=== PATIENT | female | born 1985 | race Caucasian/White ===

== ENCOUNTER 2020-07-10 11:31 | Outpatient (CLI) | payer OTHER, SELFPAY ==
[2020-07-10 12:24] LABS: Basophils Absolute Auto 0.1 K/mm3 (0.0-0.1); Basophils Percent Auto 0.8 % (0.2-1.2); Eosinophils Absolute Auto 0.6 K/mm3 (0-0.3); Eosinophils Percent Auto 7.2 % (0-4.4); Hematocrit 42.2 % (37.0-47.0); Hemoglobin 14.1 g/dL (12.0-15.0); Immature Granulocyte Absolute 0.06 K/mm3 (0.00-0.031); Immature Granulocyte Percent A 0.7 % (0-0.5); Lymphocytes Absolute Auto 2.39 K/mm3 (0.9-3.2); Lymphocytes Percent Auto 26.8 % (18.3-44.2); Mean Corpuscular HGB Conc 33.4 g/dl (32-36); Mean Corpuscular Hemoglobin 30.1 pg (26-34); Mean Platelet Volume 8.1 fl (7.4-10.4); Monocytes Absolute Auto 0.5 K/mm3 (0.1-0.6); Monocytes Percent Auto 5.3 % (2.6-8.5); Neutrophils Absolute Auto 5.3 K/mm3 (1.3-6.7); Neutrophils Percent Auto 59.2 % (45.5-73.1); Platelet Count Result 310 k/mm3 (150-375); Red Blood Count 4.69 M/mm3 (4.2-5.4); Red Cell Distribution Width 13.2 % (11.5-14.5); White Blood Count 8.9 K/mm3 (4.5-10.0)
[2020-07-10 12:34] LABS: Hemoglobin A1C 4.9 % (<5.7)
[2020-07-10 12:41] LABS: Alanine Aminotransferase 135 U/L (4-35); Albumin Level 4.4 g/dL (3.5-5.1); Alkaline Phosphatase 64 U/L (38-126); Anion Gap 4 mmol/L (8-16); Aspartate Amino Transferase 93 U/L (14-36); Bilirubin,Total 0.9 mg/dL (0.2-1.3); Blood Urea Nitrogen 9 mg/dL (7-17); Calcium 9.1 mg/dL (8.4-10.2); Carbon Dioxide 28 mmol/L (22-30); Chloride 103 mmol/L (98-107); Estimated Glomerular Filt Rate > 60; Glucose 89 mg/dL (65-105); Potassium 4.2 mmol/L (3.4-5.0); Sodium 135 mmol/L (137-145)
[2020-07-10 14:04] LABS: Vitamin D 25 Hydroxy 17.1 ng/mL
[2020-07-14 04:47] LABS: Red Blood Cell Folate 536 ng/mL RBC (>280)
[2020-07-14 05:55] LABS: Triiodothyronine T3 Free 3.4 pg/mL (2.3-4.2)
[2020-07-15 05:37] LABS: Thyroglobulin 20.5 ng/mL (2.8-40.9); Thyroglobulin Antibodies <1 IU/mL (<=1); Thyroid Peroxidase Antibodies <1 IU/mL (<9)
== END 2020-07-10 11:32 | disposition home or self-care (01) ==
PROVIDERS: PCP Family Medicine; Visit Provider Nurse Practitioner Obstetrics & Gynecology
DX: R53.81 Other malaise (principal); R63.5 Abnormal weight gain; F41.8 Other specified anxiety disorders
CPT/HCPCS: 36415; 80053; 82306; 82747; 83036; 84432; 84443; 84481; 85025; 86376; 86800